=== PATIENT | male | born 1965 | race Caucasian/White ===

== ENCOUNTER 2024-11-05 09:49 | Outpatient (REF) | payer OTHER, SELFPAY ==
--- OUTSIDE RECORDS SUMMARY | 2024-11-05 11:10 | XMS_ITS | Clinical Summary ---
Author Organization [facility] Address [address] [place] [address] Care Team Providers Care Reinsurance Clerk Name Role Phone León Villalobos MD Primary Care Provider [phone] Medical History Medical History Date Comments Seizures (CMS/HCC V24, CMS/HCC V28) DX:Seizures (HCC) AMS (altered mental status) DX:A MS (altered mental status) Visual loss, left eye DX:Visual loss, left eye PFO (patent foramen ovale) DX:PF O (patent foramen ovale) Social History Tobacco Use Types Packs/Day Years Used Date Smoking Tobacco: Never Smokeless Tobacco: Never Alcohol Use Standard Drinks/Week Comments Not Asked 0 (1 standard drink = 0.6 oz pur e alcohol) Sex and Gender Information Value Date Recorded Sex Assigned at Not on file Legal Sex Male 9:45 PM EST Gender Identity Not on file Sexual Orientation Not on file Obstetrics History Last Filed Vital Signs Vital Sign Reading Time Taken Comments Blood Pressure 110/70 07/28/2023 8:59 AM EST Sit ting L Arm Pulse 69 07/28/2023 8:59 AM EST Temperature - - Respiratory Rate - - Oxygen Saturation - - Inhaled Oxygen Concentration - - Weight 86.2 kg (190 lb) 07/28/2023 8:59 AM EST Height 172.7 cm (5' 8 ) 07/28/2023 8:59 AM EST Body Mass Index 28.89 07/28/2023 8:59 AM EST Plan of Treatment Health Maintenance Due Date Last Done Comments Hepatitis B Vaccines (1 of 3 - 19+ 3-dose series) 1984 Pneumococcal Vaccine: 50+ Ye ars (1 of 1 - PCV) 10/14/2015 Zoster Vaccines (1 of 2) 10/14/2015 COVID-19 Vaccine (1 - 2023-2 5 season) 2024 Cholesterol Screening (Lipid Panel) 04/18/2024 Colorectal Cancer Screening: Colonoscopy 04/18/2024 Depression Screening 04/18/2024 HIV Screening 04/18/2024 Hepatitis C Screening 04/18/2024 Social Influencers of Health Screening 04/18/2024 Influenza Vaccine (Season Ended) 2025 05/21/20 20 DTaP,Tdap,and Td Vaccines (2 - Td or Tdap) 03/06/2027 03/06/2017 RSV Immunization Adult Patie nts (1 - 1-dose 75+ series) 2040 HIB Vaccines Aged Out No longer eligi ble based on patient's age to complete this topic HPV Vaccines Aged Out No longer eligi ble based on patient's age to complete this topic Hepatitis A Vaccines Aged Out No long er eligible based on patient's age to complete this topic IPV Vaccines Aged Out No longer eligi ble based on patient's age to complete this topic MMR Vaccines Aged Out No longer eligi ble based on patient's age to complete this topic Meningococcal ACWY Vaccine Aged Out N o longer eligible based on patient's age to complete this topic Meningococcal B Vaccine Aged Out No l onger eligible based on patient's age to complete this topic Pneumococcal Vaccine: Pediat rics (0 to 5 Years) and At-Risk Patients (6 to 64 Years) Aged Out No longer eligi ble based on patient's age to complete this topic RSV Immunization Patients Un lexus 20 months Aged Out No longer eligible b ased on patient's age to complete this topic Varicella Vaccines Aged Out No longer eligible based on patient's age to complete this topic Care Teams Reinsurance Clerk Relationship Specialty Start Date End Date León Villalobos MD [facility] Dai [address] PCP - General 08/01/23
--- OUTSIDE RECORDS SUMMARY | 2024-11-05 11:10 | XMS_ITS ---
Author Name [facility] Organization Unknown Encounters Encounter Type Encounter Reason Primary Diagnosis Location Date Ambulatory Unspecified convulsions Unspecified convulsions [employer] 07/26/2024 Care Team Organization Name Specialty Phone Email Start Date End [facility] 08/14/2024 Effie [facility] BRENDAN CARRENO Primary Care 07/26/2024 [facility] PCP Primary Care 03/12/2024
[2024-11-05 11:28] LABS: Phenytoin Dilantin 14.7 ug/mL (10.0-20.0)
== END 2024-11-05 09:50 | disposition home or self-care (01) ==
LOC: HO.LAB 09:49
PROVIDERS: PCP Physician Assistant Medical; Visit Provider Psychiatry & Neurology Neurology
DX: G40.909 Epilepsy, unspecified, not intractable, without status epilepticus (principal)
CPT/HCPCS: 36415; 80185